=== PATIENT | female | born 1955 | race Caucasian/White ===

== ENCOUNTER 2020-07-13 11:48 | Outpatient (CLI) | payer OTHER | END 2020-07-13 11:56 | disposition home or self-care (01) | LOC: SONOGRAMA 11:48 | PROVIDERS: ATTEND Pathology Anatomic Pathology & Clinical Pathology | DX: D34 Benign neoplasm of thyroid gland (principal); E04.1 Nontoxic single thyroid nodule; E07.89 Other specified disorders of thyroid ==

== ENCOUNTER → 2020-07-13 | Outpatient (CLI) | payer OTHER | END | disposition home or self-care (01) | LOC: RAD 12:16 | PROVIDERS: ATTEND Orthopaedic Surgery | DX: M17.11 Unilateral primary osteoarthritis, right knee (principal); M79.651 Pain in right thigh ==

== ENCOUNTER → 2020-07-30 11:18 | Outpatient (CLI) | payer OTHER ==
[~2020-07-30 11:18] MED LIST: AMITRIPTYLINE H50 MG PO; CATAFLAN PO; CELECOXIB200 MG; CYMBALTA20 MG PO; D3-200050 MCG; DAILY MULTIPLE1 EAC2 PO; DICLOFENAC SODI50 MG; GABAPENTIN300 M2; HYZAAR 50-12.51 EACH PO; MAGNESIUM OXID250 MG; PEPCID AC20 MG PO; PROGESTERONE200 MG; TENORMIN25 MG PO; TYLE PO; TYLENOL325 MG; VITAMIN E400 UNI5; XARELTO10 M1
== END | disposition home or self-care (01) ==
LOC: LAB 11:18
PROVIDERS: ATTEND Orthopaedic Surgery
DX: E83.42 Hypomagnesemia (principal); M85.88 Other specified disorders of bone density and structure, other site; E88.89 Other specified metabolic disorders; M81.8 Other osteoporosis without current pathological fracture; E56.1 Deficiency of vitamin K; N18.9 Chronic kidney disease, unspecified; E78.49 Other hyperlipidemia; R73.09 Other abnormal glucose; Z00.00 Encounter for general adult medical examination without abnormal findings; Z12.11 Encounter for screening for malignant neoplasm of colon; E03.8 Other specified hypothyroidism

== ENCOUNTER → 2020-08-03 13:54 | Outpatient (CLI) | payer OTHER | END | disposition home or self-care (01) | LOC: EKG 13:54 | PROVIDERS: ATTEND Orthopaedic Surgery | DX: I10 Essential (primary) hypertension (principal) ==

== ENCOUNTER 2020-08-11 08:15 | Inpatient (IN) | payer OTHER ==
[~2020-08-11] VITALS: Ht 175.3 cm; Wt 90.7 kg
[2020-08-11] MEDS ORDERED: TENORMIN25 MG PO (14:20)
[2020-08-11] MEDS ORDERED: HYZAAR 50-12.51 EACH PO (14:20)
[2020-08-11] MEDS ORDERED: AMITRIPTYLINE H50 MG PO (14:21)
[2020-08-11] MEDS ORDERED: CYMBALTA20 MG PO (14:21)
[2020-08-11] MEDS ORDERED: PEPCID AC20 MG PO (14:22)
[2020-08-11] MEDS ORDERED: DAILY MULTIPLE1 EAC2 PO (14:22)
[2020-08-11] MEDS ORDERED: CATAFLAN PO (14:23)
[2020-08-11] MEDS ORDERED: TYLE PO (14:24)
[2020-08-18] MEDS ORDERED: GABAPENTIN300 M2 (14:32)
[2020-08-18] MEDS ORDERED: CELECOXIB200 MG (14:32)
[2020-08-18] MEDS ORDERED: D3-200050 MCG (14:32)
[2020-08-18] MEDS ORDERED: XARELTO10 M1 (14:32)
[2020-08-18] MEDS ORDERED: MAGNESIUM OXID250 MG (14:32)
[2020-08-18] MEDS ORDERED: PROGESTERONE200 MG (14:33)
[2020-08-18] MEDS ORDERED: VITAMIN E400 UNI5 (14:33)
[2020-08-18] MEDS ORDERED: TYLENOL325 MG (14:33)
[2020-08-18] MEDS ORDERED: DICLOFENAC SODI50 MG (14:34)
== END 2020-08-21 14:33 | DRG 470 ==
LOC: SURH 08-17 08:15 → O/R 08-18 09:09 → SURG 08-18 09:09
PROVIDERS: ADMIT Orthopaedic Surgery; ATTEND Orthopaedic Surgery
PROC: 0SRC0J9 Replacement of Right Knee Joint with Synthetic Substitute, Cemented, Open Approach (ICD-10-PCS; principal; 2020-08-18 12:00)
DX: M17.11 Unilateral primary osteoarthritis, right knee (principal); I10 Essential (primary) hypertension

== ENCOUNTER 2022-02-16 15:12 | Outpatient (CLI) | payer OTHER | END 2022-02-16 15:26 | disposition home or self-care (01) | LOC: RAD 15:12 | PROVIDERS: ATTEND Orthopaedic Surgery | DX: M25.561 Pain in right knee (principal) ==

== ENCOUNTER 2022-03-28 07:24 | Outpatient (CLI) | payer OTHER | END 2022-03-28 07:27 | disposition home or self-care (01) | LOC: NUCLEAR 07:24 | PROVIDERS: ATTEND Orthopaedic Surgery | DX: Z96.651 Presence of right artificial knee joint (principal); M25.561 Pain in right knee; Z88.5 Allergy status to narcotic agent | CPT/HCPCS: 78315; A9503 ==

== ENCOUNTER → 2022-04-22 | Outpatient (CLI) | payer OTHER | END | disposition home or self-care (01) | LOC: RAD 11:11 | PROVIDERS: ATTEND Orthopaedic Surgery | DX: M25.552 Pain in left hip (principal) ==

== ENCOUNTER 2022-06-22 10:18 | Outpatient (CLI) | payer OTHER | END 2022-06-22 10:19 | disposition home or self-care (01) | LOC: NUCLEAR 10:18 | PROVIDERS: ATTEND Orthopaedic Surgery | DX: M25.561 Pain in right knee (principal); Z96.651 Presence of right artificial knee joint | CPT/HCPCS: 78802; A9556 ==

== ENCOUNTER 2023-05-27 11:55 | Inpatient (IN) | payer OTHER ==
[~2023-05-27] VITALS: Ht 152.4 cm; Wt 196.0 kg
[2023-05-27] MEDS ORDERED: SYMBICORT 16010.2 GM (12:06)
[2023-05-27] MEDS ORDERED: XHANCE16 ML NASAL (12:06)
[2023-05-27 13:39] LABS: HEMATOCRIT 34.8 % (36.0-45.00); HEMOGLOBIN 11.6 g/dL (12.0-15.00); MEAN CELL VOLUME 87.4 fL (80.00-100.00); MEAN CORPUSCULAR HEMOGLOBIN 29.1 pg (27.00-32.0); MEAN CORPUSCULAR HGB CONC 33.3 g/dl (32.0-36.0); PLATELET COUNT 221 K/uL (150-450); RED BLOOD COUNT 3.98 M/uL (4.00-6.00); RED CELL DISTRIBUTION WIDTH 12.6 % (11.5-14.5)
[2023-05-27 13:54] LABS: CALCIUM 9.3 mg/dL (8.5-10.1); CREATININE SERUM 0.87 mg/dL (0.55-1.02); GFR 64.37; POTASSIUM 3.44 mEq/L (3.5-5.1)
[2023-05-27 14:42] LABS: URINE APPEARANCE Cloudy; URINE BILIRRUBIN Negative (NEGATIVE); URINE BLOOD Moderate; URINE COLOR Yellow; URINE EPITHELIAL CELLS 5.2 uL (0.0-38.8); URINE LEUKOCYTE Moderate; URINE NITRATE Negative; URINE RBC 75.1 uL (0.0-20.8); URINE WBC 1556.3 uL (0.0-23.2)
[2023-05-27 14:50] LABS: URINE GLUCOSE 100 MG/DL (NEGATIVE); URINE PROTEIN 100 (NEGATIVE)
[2023-05-27 14:51] LABS: URINE BACTERIA > 9821.2 uL (0.0-1933)
[2023-05-28 08:27] LABS: INR 1.03; PARTIAL THROMBOPLASTIN TIME 33.4 SECONDS (22.0-34.0); PROTHROMBIN TIME 10.8 SECONDS (9.0-11.5)
[2023-05-28 08:37] LABS: ALBUMIN 2.6 gm/dL (3.4-5.0); BILIRUBIN TOTAL 0.45 mg/dL (0.3-1.2); CALCIUM 8.5 mg/dL (8.5-10.1); CHOL HDL RATIO 2.5 (0-5.0); CREATININE SERUM 0.8 mg/dL (0.55-1.02); GFR 70.91; GLOBULINA 3.3 G/DL (2.4-3.5); POTASSIUM 4.08 mEq/L (3.5-5.1); TOTAL PROTEIN 5.9 gm/dL (6.4-8.2)
[2023-05-28 08:40] LABS: C-REACTIVE PROTEIN 15.8 MG/DL (0.00-0.29)
[2023-05-28 09:15] LABS: HEMATOCRIT 31.3 % (36.0-45.00); HEMOGLOBIN 10.4 g/dL (12.0-15.00); MEAN CELL VOLUME 86.7 fL (80.00-100.00); MEAN CORPUSCULAR HEMOGLOBIN 28.9 pg (27.00-32.0); MEAN CORPUSCULAR HGB CONC 33.3 g/dl (32.0-36.0); PLATELET COUNT 195 K/uL (150-450); RED BLOOD COUNT 3.61 M/uL (4.00-6.00)
[2023-05-28 09:51] LABS: BILIRUBIN,CONJUGATED 0.11 mg/dL (0.0-0.2); BILIRUBIN,UNCONJUGATED 0.34 mg/dL (0.0-0.6)
[2023-05-28 09:57] LABS: ERYTHROCYTE SEDIMENTATION RATE 75 mm/hr
[2023-05-28 13:07] LABS: PH,URINE 6.5 (5.0-8.0); URINE APPEARANCE Clear; URINE BILIRRUBIN Negative (NEGATIVE); URINE BLOOD Moderate; URINE COLOR Yellow; URINE GLUCOSE Negative (NEGATIVE); URINE LEUKOCYTE Small; URINE NITRATE Negative; URINE PROTEIN 30 (NEGATIVE)
[2023-05-28 13:08] LABS: URINE EPITHELIAL CELLS 14.5 uL (0.0-38.8); URINE WBC 208.4 uL (0.0-23.2)
[2023-05-29 16:45] LABS: PH,URINE 6.5 (5.0-8.0); URINE APPEARANCE Cloudy; URINE BILIRRUBIN Negative (NEGATIVE); URINE BLOOD Negative; URINE COLOR Dark Yellow; URINE GLUCOSE Negative (NEGATIVE); URINE LEUKOCYTE Trace; URINE NITRATE Positive; URINE PROTEIN Negative (NEGATIVE)
[2023-05-29 16:49] LABS: URINE RBC 2.2 uL (0.0-20.8); URINE WBC 7.5 uL (0.0-23.2)
[2023-05-29 17:06] LABS: URINE BACTERIA 1.2 uL (0.0-1933); URINE EPITHELIAL CELLS 1.3 uL (0.0-38.8)
[2023-05-31 04:51] LABS: HEMATOCRIT 33.4 % (36.0-45.00); HEMOGLOBIN 11.2 g/dL (12.0-15.00); MEAN CELL VOLUME 85.1 fL (80.00-100.00); MEAN CORPUSCULAR HEMOGLOBIN 28.6 pg (27.00-32.0); MEAN CORPUSCULAR HGB CONC 33.6 g/dl (32.0-36.0); PLATELET COUNT 301 K/uL (150-450); RED BLOOD COUNT 3.93 M/uL (4.00-6.00); RED CELL DISTRIBUTION WIDTH 12.5 % (11.5-14.5)
[2023-05-31 05:21] LABS: ALBUMIN 2.9 gm/dL (3.4-5.0); BILIRUBIN TOTAL 0.4 mg/dL (0.3-1.2); CALCIUM 9.2 mg/dL (8.5-10.1); CREATININE SERUM 0.76 mg/dL (0.55-1.02); GFR 75.23; GLOBULINA 3.6 G/DL (2.4-3.5); POTASSIUM 3.94 mEq/L (3.5-5.1); TOTAL PROTEIN 6.5 gm/dL (6.4-8.2)
[2023-05-31 14:29] LABS: URINE APPEARANCE Clear; URINE BILIRRUBIN Negative (NEGATIVE); URINE BLOOD Negative; URINE COLOR Yellow; URINE GLUCOSE Negative (NEGATIVE); URINE LEUKOCYTE Negative; URINE NITRATE Negative; URINE PROTEIN Negative (NEGATIVE); URINE UROBILINOGEN 0.2 E.U./dl
[2023-05-31 14:33] LABS: URINE BACTERIA 2.5 uL (0.0-1933); URINE EPITHELIAL CELLS 1.2 uL (0.0-38.8); URINE RBC 4.1 uL (0.0-20.8); URINE WBC 8.7 uL (0.0-23.2)
== END 2023-06-01 14:38 | disposition home or self-care (01) | DRG 690 ==
LOC: ER 11:55 → MEDI 20:21
PROVIDERS: General Practice; Internal Medicine Infectious Disease; ADMIT Internal Medicine; ATTEND Internal Medicine
PROC: BW21ZZZ Computerized Tomography (CT Scan) of Abdomen and Pelvis (ICD-10-PCS; principal; 2023-05-27)
PROC: 3E0F7GC Introduction of Other Therapeutic Substance into Respiratory Tract, Via Natural or Artificial Opening (ICD-10-PCS; 2023-05-28)
DX: N39.0 Urinary tract infection, site not specified (principal); B96.20 Unspecified Escherichia coli [E. coli] as the cause of diseases classified elsewhere; J10.1 Influenza due to other identified influenza virus with other respiratory manifestations; D72.828 Other elevated white blood cell count; I10 Essential (primary) hypertension